=== PATIENT | female | born 1975 | race Caucasian/White ===

== ENCOUNTER 2018-07-02 22:29 | Emergency (ER) | payer OTHER, SELFPAY ==
[~2018-07-02] VITALS: Ht 170.2 cm; Wt 61.4 kg
[2018-07-02 22:29] VITALS: BP 144/81
[~2018-07-02 22:29] MED LIST: IBUP80TA PO; MAPA500T2 PO; PRENTAB53 PO
[2018-07-02] MEDS ORDERED: GENTAMICIN 0.3% OPHTH SOL 5 ML BTL OS ONE (23:00)
[2018-07-02] MEDS ORDERED: TETRACAINE 0.5% OPHTH SOLN 4ML OS ONE (23:15)
[2018-07-02] MEDS ORDERED: FLUORESCEIN OPHTH 1 MG STRIP OS ONE (23:15)
== END 2018-07-02 23:21 | disposition home or self-care (01) ==
LOC: M ED 22:29
DX: S05.02XA Injury of conjunctiva and corneal abrasion without foreign body, left eye, initial encounter (principal); X58.XXXA Exposure to other specified factors, initial encounter; Y92.89 Other specified places as the place of occurrence of the external cause; Z97.3 Presence of spectacles and contact lenses; Z88.2 Allergy status to sulfonamides

== ENCOUNTER → 2018-09-30 | Outpatient (REF) | payer OTHER | LOC: M LAB REF 13:27 | PROVIDERS: ATTEND Physician Assistant | DX: N39.0 Urinary tract infection, site not specified (principal) ==

== ENCOUNTER → 2020-01-13 | Outpatient (REF) | payer OTHER ==
[2020-01-13 20:44] LABS: CHLAMYDIA DNA AMPLIFICATION NEGATIVE (NEGATIVE); GC DNA AMPLIFICATION NEGATIVE (NEGATIVE)
== END ==
LOC: M WUC 16:53
PROVIDERS: ATTEND Physician Assistant
DX: R30.0 Dysuria (principal)

== ENCOUNTER → 2023-07-24 | Outpatient (CLI) | payer OTHER, SELFPAY | LOC: M WHC 10:04 | PROVIDERS: ATTEND Nurse Practitioner Family | DX: R92.2 Inconclusive mammogram (principal) ==

== ENCOUNTER → 2023-09-15 | Outpatient (CLI) | payer OTHER | LOC: M WHC 08:28 | PROVIDERS: ATTEND Nurse Practitioner Family | DX: Z12.31 Encounter for screening mammogram for malignant neoplasm of breast (principal) ==

== ENCOUNTER → 2023-12-16 | Outpatient (CLI) | payer OTHER | LOC: M RAD 11:46 | PROVIDERS: ATTEND Surgery | DX: I83.891 Varicose veins of right lower extremity with other complications (principal) ==

== ENCOUNTER → 2024-02-05 | Outpatient (CLI) | payer OTHER | LOC: M RAD 10:28 | PROVIDERS: ATTEND Nurse Practitioner Family | DX: I83.91 Asymptomatic varicose veins of right lower extremity (principal) ==